=== PATIENT | female | born 1985 | race Caucasian/White ===

== ENCOUNTER 2016-07-09 08:06 | Day surgery (SDC) | payer BC ==
[2016-06-18 12:24] LABS: BASO % 0.6 %; BASO ABS # 0.03 K/uL (0-0.2); COMPLETE YES; EOS % 1.4 %; HEMATOCRIT 36.1 % (37-47); IG% 0.2 %; LYMPH % 34.4 %; LYMPH ABS # 1.72 K/uL (1.2-3.4); MEAN CELL VOLUME 86.2 fL (80-100); MEAN CORPUSCULAR HEMOGLOBIN 28.9 pg (25-34); MEAN CORPUSCULAR HGB CONC 33.5 g/dl (32-36); MEAN PLATELET VOLUME 12.2 fL (7.4-10.4); MONO % 6.2 %; NEUT % 57.2 %; PLATELET COUNT 191 K/uL (130-400); RED BLOOD COUNT 4.19 M/uL (4.2-5.4)
[2016-06-18 14:37] LABS: BLOOD UREA NITROGEN 16 mg/dl (7-18); BUN/CREATININE RATIO 21.6 (10-20); CALCIUM 9.4 mg/dl (8.5-10.1); CARBON DIOXIDE 26 mmol/L (21-32); CHLORIDE 110 mmol/L (98-107); CREATININE 0.76 mg/dl (0.60-1.20); GLUCOSE 81 mg/dl (70-99); SODIUM 144 mmol/L (136-145)
[2016-07-05 09:50] VITALS: BMI 21.0
[~2016-07-09] VITALS: Ht 157.5 cm; Wt 53.2 kg
[~2016-07-09 08:06] MED LIST: LACTATED RINGER'S 1000ML 1,000 ML IV SCH
[2016-07-09] MEDS ORDERED: LIDOCAINE HCL 2% 2 ML VIAL (20MG/ML) ONE (08:26)
[2016-07-09] MEDS ORDERED: PROPOFOL IV EMULSION 10 MG/ML 20 ML VIAL IV ONE (08:26)
[2016-07-09] MEDS ORDERED: FENTANYL CITRATE INJ 50 MCG/1 ML 2 ML VIAL ONE ×2 (08:26→13:31)
[2016-07-09] MEDS ORDERED: ONDANSETRON INJ 2 MG/ML 2 ML VIAL ONE ×3 (08:26→13:30)
[2016-07-09] MEDS ORDERED: MIDAZOLAM HCL 1 MG/ML 2ML VIAL ONE (08:26)
[2016-07-09] MEDS ORDERED: ROCURONIUM BROMIDE 10 MG/ML 5 ML VIAL ONE (08:26)
[2016-07-09] MEDS ORDERED: DEXAMETHASONE SOD INJ 4 MG/ML VIAL ONE (08:26)
[2016-07-09 08:29] VITALS: BP 100/62; PULSE 93; TEMP 36.9; O2SAT 97; Ht 157.5 cm; Wt 53.2 kg
--- NOTE | 2016-07-09 11:27 | History & Physical Bridge Note ---
H&P Re-Evaluation Bridge Note: I have examined the patient, reviewed the History & Physical and in the interval since the performance of the History & Physical I have noted the following changes of clinical significance: No changes noted
[2016-07-09] MEDS ORDERED: NEOSTIGMINE METHYLSULFATE 5 MG/5 ML SYR ONE (12:43)
[2016-07-09] MEDS ORDERED: GLYCOPYRROLATE INJ 0.2 MG/ML VIAL ONE (12:43)
[2016-07-09] MEDS ORDERED: EpHEDrine SULFATE 50MG/5ML SYR ONE (12:43)
[2016-07-09] MEDS ORDERED: BUPIVACAINE 0.5 % 5 MG/1 ML MPF 30ML VIAL INJ ONE (13:08)
[2016-07-09] MEDS ORDERED: METHYLENE BLUE 1% 10 ML VIAL TOP ONE (13:08)
[2016-07-09] MEDS ORDERED: SODIUM CHLORIDE 0.9% 1000ML 1,000 ML IV SCH (13:16)
--- NOTE | 2016-07-09 13:18 | [facility] Post Operative Brief Note ---
Immediate Operative Summary Operative Date Jul 09, 2016. Pre-Operative Diagnosis Endometriosis and pelvic pain Post-Operative Diagnosis Same as pre-operative Procedure(s) Performed Robotic assisted diagnostic laparoscopy with resection of endometriosis and chromotubation Surgeon Dr. Tami Mathew Chlorination Operator Surgeon(s) Dr. Ashwini Givens Estimated Blood Loss 10ml Findings Endometriosis. Specimens A. Pelvic peritonium biopsy Drains None Anesthesia General Complication(s) None Disposition Recovery Room / PACU
[2016-07-09] MEDS ORDERED: OXYC-57 PO (13:19)
--- NOTE | 2016-07-09 13:20 | Discharge Instructions ---
Discharge Instructions Admission Reason for Admission: Endometriosis Discharge Discharge Diagnosis / Problem: endometriosis Discharge Goals Goal(s): Routine recovery after surgery Activity Recommendations Activity Limitations: per Instructions/Follow-up section ACTIVITY RECOMMENDATIONS: * Rest the first 2-3 days. You should be back to your normal activity levels by day 3. * No heavy lifting for 2 weeks. * No intercourse, tampons or douching for 1-2 weeks. * You may shower the next day. * Do not drive anytime that you are taking narcotic pain medicines. RETURN TO SCHOOL/WORK: * May return to school or work after 2-3 days. DIET: Nausea may occur in the immediate post-operative period. If so, take clear liquids such as tea, bouillon, apple juice until all nausea has subsided, then resume usual diet. MEDICATIONS: Resume previous medications unless instructed otherwise by your surgeon. Ibuprofen 200mg 2-3 tablets every 4-6 hours as needed -- OR -- Aleve 2 tablets every 8-12 hours as needed for post-operative discomfort Medications are over the counter. Tylenol may be used if above medications are contraindicated or not preferred. Medication should be taken with food or milk. Do not take on an empty stomach. SPECIAL CARE INSTRUCTIONS: * Check temperature twice daily for one week. report any elevation over 101 degrees. * You may experience some vagina spotting and/or bleeding. This is normal for 1 -2 weeks and should not be heavier than a normal period. If it is unusual in amount, call your physician. * Post-operative discomfort may consist of a sore throat, a "bloated" feeling and pain in the shoulders. these are normal symptoms, which usually only last for 2-3 days. * Remove band-aids tomorrow and shower. There is no need to replace band-aids unless there is drainage or discomfort. FOLLOW UP VISIT: Call your doctor's office for a post-operative 2 week visit if not already scheduled. . Instructions / Follow-Up Instructions / Follow-Up ACTIVITY RECOMMENDATIONS: * Rest the first 2-3 days. You should be back to your normal activity levels by day 3. * No heavy lifting for 2 weeks. * No intercourse, tampons or douching for 1-2 weeks. * You may shower the next day. * Do not drive anytime that you are taking narcotic pain medicines. RETURN TO SCHOOL/WORK: * May return to school or work after 2-3 days. DIET: Nausea may occur in the immediate post-operative period. If so, take clear liquids such as tea, bouillon, apple juice until all nausea has subsided, then resume usual diet. MEDICATIONS: Resume previous medications unless instructed otherwise by your surgeon. Ibuprofen 200mg 2-3 tablets every 4-6 hours as needed -- OR -- Aleve 2 tablets every 8-12 hours as needed for post-operative discomfort Medications are over the counter. Tylenol may be used if above medications are contraindicated or not preferred. Medication should be taken with food or milk. Do not take on an empty stomach. SPECIAL CARE INSTRUCTIONS: * Check temperature twice daily for one week. report any elevation over 101 degrees. * You may experience some vagina spotting and/or bleeding. This is normal for 1 -2 weeks and should not be heavier than a normal period. If it is unusual in amount, call your physician. * Post-operative discomfort may consist of a sore throat, a "bloated" feeling and pain in the shoulders. these are normal symptoms, which usually only last for 2-3 days. * Remove band-aids tomorrow and shower. There is no need to replace band-aids unless there is drainage or discomfort. FOLLOW UP VISIT: Call your doctor's office for a post-operative 2 week visit if not already scheduled. Current Hospital Diet Patient's current hospital diet: Discharge Diet Recommended Diet: Regular Diet Procedures Procedures Performed: Robotic assisted diagnostic laparoscopy with resection of endometriosis and chromotubation Pending Studies Studies pending at discharge: no Medical Emergencies . Who to Call and When: Medical Emergencies: If at any time you feel your situation is an emergency, please call 911 immediately. . Non-Emergent Contact Non-Emergency issues call your: Primary Care Provider . . "Provider Documentation" section prepared by Angel Mathew. VTE Core Measure Inpt VTE Proph given/why not?: Malu Wooten, SCD's
[2016-07-09] MEDS ORDERED: KETOROLAC TROMETHAMINE 30 MG/ML VIAL ONE (13:21)
[2016-07-09] MEDS ORDERED: KETOROLAC TROMETHAMINE 30 MG/ML VIAL IV. PRN ×2 (13:30)
[2016-07-09] MEDS ORDERED: FENTANYL CITRATE INJ 50 MCG/1 ML 2 ML VIAL IV PRN (13:30)
[2016-07-09] MEDS ORDERED: ONDANSETRON INJ 2 MG/ML 2 ML VIAL IV PRN ×2 (13:30)
[2016-07-09] MEDS ORDERED: IBUPROFEN 600 MG TAB PO PRN (13:30)
[2016-07-09] MEDS ORDERED: ATROPINE SULFATE 0.1 MG/ML 5ML SYR IV PRN (13:30)
[2016-07-09] MEDS ORDERED: HYDROCODONE/ACETAMOPHEN 5/325MG TAB PO PRN ×2 (13:30)
[2016-07-09] MEDS ORDERED: PROMETHAZINE HCL INJ 25 MG in SODIUM CHLORIDE 0.9% 50ML 50 ML IV PRN (13:30)
[2016-07-09] MEDS ORDERED: OXYCODONE/ACETAMINOPHEN 5-325 TAB PO PRN ×2 (13:30)
[2016-07-09 14:15] VITALS: BP 90/57; PULSE 73; TEMP 36.6; O2SAT 99
[2016-07-09 14:45] VITALS: BP 98/58; PULSE 67; TEMP 36.4; O2SAT 99
--- NOTE | 2016-07-09 15:05 | Anesthesiology Progress Note ---
Anesthesia Post Op Note Date & Time Jul 09, 2016 at 15:04 Vital Signs Pain Intensity: 3 Vital Signs Past 12 Hours Date Time Temp Pulse Resp B/P Pulse Ox O2 Delivery O2 Flow Rate FiO2 07/09/16 14:45 36.4 67 18 98/58 99 Room Air 07/09/16 14:15 36.6 73 18 90/57 99 Room Air 07/09/16 14:05 36.3 78 18 97/58 99 Room Air 07/09/16 13:55 53 12 103/61 98 Room Air 07/09/16 13:45 60 14 102/62 100 Nasal Cannula 2 07/09/16 13:35 73 17 109/67 100 Nasal Cannula 2 07/09/16 13:29 36.2 102 20 110/75 99 Nasal Cannula 2 07/09/16 08:29 36.9 93 18 100/62 97 Room Air Notes Mental Status: alert / awake / arousable, participated in evaluation Pt Amnestic to Procedure: Yes Nausea / Vomiting: adequately controlled Pain: adequately controlled Airway Patency, RR, SpO2: stable & adequate BP & HR: stable & adequate Hydration State: stable & adequate Anesthetic Complications: no major complications apparent
[2016-07-09 15:15] VITALS: BP 108/61; PULSE 88; TEMP 36.7; O2SAT 100
--- NOTE | 2016-07-09 16:25 | OPERATIVE REPORT ---
DATE OF OPERATION: 07/09/2016 PREOPERATIVE DIAGNOSIS: Pelvic pain, suspected endometriosis. POSTOPERATIVE DIAGNOSIS: Pelvic pain, endometriosis. PROCEDURE: Robotically assisted laparoscopic resection of endometriosis and chromotubation. SURGEON: Dr. Mathew. ASSEMBLER DC FIELD RING: Dr. Givens. ESTIMATED BLOOD LOSS: 10 mL. FINDINGS: Endometriosis. SPECIMENS: Pelvic peritoneum biopsy x3. DRAINS: None. ANESTHETIC: General. COMPLICATIONS: None. DISPOSITION: Recovery room. DESCRIPTION OF PROCEDURE: Mercedes was given a general anesthetic, prepped and draped in dorsal lithotomy position in [facility]. Cook catheter placed in her bladder and a cervical acorn device attached to her cervix, attached to an Allis. Gloves changed. Subumbilical incision was made with scalpel. We did not incorporate the full incision from before as it was rather large but using open Anthony technique, we cut down through subcutaneous fascia, splitting the rectus muscles and then entering the peritoneal cavity without difficulty. Blunt-tipped Anthony trocar then placed. Balloon inflated. CO2 gas to insufflate the abdomen. FINDINGS: Using a 10 mm laparoscope, upper abdomen was normal, no sign of visceral organ injury. Deep Trendelenburg position obtained. There were areas of endometriosis which were mild in the cul-de-sac, the left pelvic sidewall and possibly in the bladder flap region. Two ports, one in the left, one in the right made; 8 mm size robotic ports then placed under direct visualization. Robot docked. Arm #1 was monopolar yumiko. Arm #2 was bipolar [place]. Robotically, I was able to visualize endo lesions in te cul- de-sac and in the left pelvic sidewall, there were hemosiderin laden lesions. These were small but certainly consistent with endometriosis. We resected these using minimal energy. The amount of energy applied to the cul-de-sac lesion may have distorted the lesion itself but we removed this out without difficulty. Same process on the left side except minimal energy used and the bladder flap as well lesion resected. All 3 lesions had been placed on the anterior part of the uterus for storage. At this stage, hemostasis was excellent. We were nowhere near the ureter on the left side at all, as this was seen peristalsing well lateral of the resection. Using the bipolar Maryland, we grasped the lesions and then removed the Maryland through the port. The lesions were then sent off to pathology. At this stage, the instruments removed, robot undocked, ports removed, and gas allowed to escape. Incisions were injected with 0.5% Marcaine. Fascia carefully closed with 0 Vicryl, subcuticular 4-0 Monocryl on incisions and Dermabond. Cook catheter removed and instruments removed from the cervix and vagina. Sponge and instrument counts correct. I attest to the content of the Intraoperative Record and any orders documented therein. Any exceptions are noted below. LB
== END 2016-07-09 15:30 | disposition home or self-care (01) ==
LOC: C.ACU 08:06
PROVIDERS: ATTEND Obstetrics & Gynecology
DX: N80.9 Endometriosis, unspecified (principal); Z82.49 Family history of ischemic heart disease and other diseases of the circulatory system; Z83.3 Family history of diabetes mellitus; Z98.890 Other specified postprocedural states
CPT/HCPCS: 58662; S2900

== ENCOUNTER → 2016-12-11 | Outpatient (CLI) | payer BC ==
[~2016-12-11] MED LIST changes: -LACTATED RINGER'S 1000ML 1,000 ML IV SCH; +OXYC-57 PO
== END | disposition home or self-care (01) ==
LOC: C.LAB1850 09:03
PROVIDERS: ATTEND Obstetrics & Gynecology
DX: Z32.00 Encounter for pregnancy test, result unknown (principal)

== ENCOUNTER → 2016-12-13 | Outpatient (CLI) | payer BC | END | disposition home or self-care (01) | LOC: C.LAB1850 09:31 | PROVIDERS: ATTEND Obstetrics & Gynecology | DX: O09.00 Supervision of pregnancy with history of infertility, unspecified trimester (principal); Z3A.00 Weeks of gestation of pregnancy not specified ==

== ENCOUNTER → 2016-12-28 | Outpatient (CLI) | payer BC ==
[2016-12-28 14:35] LABS: URINE APPEARANCE CLEAR (CLEAR); URINE BILIRUBIN NEG (NEG); URINE COLOR YELLOW; URINE NITRITE NEG (NEG); UROBILINOGEN NEG (NEG)
[2016-12-28 14:47] LABS: MANUAL MICROSCOPIC REQUIRED? NO; REVIEW REQ? NO
== END | disposition home or self-care (01) ==
LOC: C.LABSPEC 13:55
PROVIDERS: ATTEND Obstetrics & Gynecology
DX: O09.00 Supervision of pregnancy with history of infertility, unspecified trimester (principal); Z3A.00 Weeks of gestation of pregnancy not specified

== ENCOUNTER → 2017-01-01 | Outpatient (CLI) | payer BC | END | disposition home or self-care (01) | LOC: C.PAPS 18:00 | PROVIDERS: ATTEND Obstetrics & Gynecology | DX: Z01.419 Encounter for gynecological examination (general) (routine) without abnormal findings (principal); Z11.51 Encounter for screening for human papillomavirus (HPV) ==

== ENCOUNTER → 2017-01-01 | Outpatient (CLI) | payer BC ==
[2017-01-01 16:41] LABS: BASO % 0.4 %; BASO ABS # 0.03 K/uL (0-0.2); COMPLETE YES; EOS % 0.6 %; HEMATOCRIT 35.7 % (37-47); IG% 0.1 %; LYMPH % 25.1 %; LYMPH ABS # 2.09 K/uL (1.2-3.4); MEAN CELL VOLUME 83.6 fL (80-100); MEAN CORPUSCULAR HGB CONC 34.7 g/dl (32-36); MONO % 6.8 %; PLATELET COUNT 197 K/uL (130-400); RED BLOOD COUNT 4.27 M/uL (4.2-5.4); WHITE BLOOD COUNT 8.34 K/uL (4.8-10.8)
== END | disposition home or self-care (01) ==
LOC: C.LAB1850 15:58
PROVIDERS: ATTEND Obstetrics & Gynecology
DX: O09.299 Supervision of pregnancy with other poor reproductive or obstetric history, unspecified trimester (principal); Z01.419 Encounter for gynecological examination (general) (routine) without abnormal findings; Z11.51 Encounter for screening for human papillomavirus (HPV)

== ENCOUNTER → 2017-01-01 | Outpatient (CLI) | payer BC ==
[2017-01-04 02:02] LABS: CHLAMYDIA TRACH RNA*** NOT DETECTED (NOT DETECTED); GC (NEIS GONORRHOEAE)RNA** NOT DETECTED (NOT DETECTED)
== END | disposition home or self-care (01) ==
LOC: C.LABSPEC 17:24
PROVIDERS: ATTEND Obstetrics & Gynecology
DX: O09.299 Supervision of pregnancy with other poor reproductive or obstetric history, unspecified trimester (principal)

== ENCOUNTER → 2017-03-07 | Outpatient (CLI) | payer BC ==
[2017-03-07 12:53] LABS: GTGD 50 Grams
== END | disposition home or self-care (01) ==
LOC: C.LAB1850 10:07
PROVIDERS: ATTEND Obstetrics & Gynecology
DX: O09.299 Supervision of pregnancy with other poor reproductive or obstetric history, unspecified trimester (principal)

== ENCOUNTER → 2017-05-29 | Outpatient (CLI) | payer BC ==
[2017-05-29 12:46] LABS: HEMATOCRIT 30.6 % (37-47)
[2017-05-29 14:16] LABS: GTGD 50 Grams
[2017-05-29 15:15] LABS: URINE APPEARANCE CLEAR (CLEAR); URINE BILIRUBIN NEG (NEG); URINE COLOR YELLOW; URINE EPITHELIAL CELL AUTO 20-30 /lpf (0-5); URINE NITRITE NEG (NEG); URINE PH 7.5 (4.5-7.5); URINE SPECIFIC GRAVITY 1.008 (1.000-1.030); UROBILINOGEN NEG (NEG)
[2017-05-29 15:20] LABS: MANUAL MICROSCOPIC REQUIRED? NO; REVIEW REQ? NO
== END | disposition home or self-care (01) ==
LOC: C.LAB1850 11:19
PROVIDERS: ATTEND Obstetrics & Gynecology
DX: Z34.83 Encounter for supervision of other normal pregnancy, third trimester (principal)

== ENCOUNTER → 2017-07-22 | Outpatient (CLI) | payer BC | END | disposition home or self-care (01) | LOC: C.LABSPEC 13:37 | PROVIDERS: ATTEND Obstetrics & Gynecology | DX: Z34.83 Encounter for supervision of other normal pregnancy, third trimester (principal); Z3A.00 Weeks of gestation of pregnancy not specified ==

== ENCOUNTER 2017-08-18 18:05 | Outpatient (CLI) | payer BC ==
[2017-08-19] MEDS ORDERED: FERR50TA3 (09:46)
[2017-08-19] MEDS ORDERED: PRENTAB26 PO (09:46)
--- NOTE | 2017-08-22 09:17 | EDITING REQUIRED CODING QUERY ---
CERVICAL DILATOR Cervical dilator insertion is documented in the orders and by nursing in EMR on 08/18/17. Please provide clarification below: ( x ) Cervical dilator was inserted ( ) Cervical dilator was not inserted ( ) Other, please clarify: Thank you for your assistance, Marlene Quintero - Clinical Reimbursement Specialist
== END 2017-08-18 19:22 | disposition home or self-care (01) ==
LOC: C.LD 18:05 → C.OPB 18:05
PROVIDERS: ATTEND Obstetrics & Gynecology
DX: O26.893 Other specified pregnancy related conditions, third trimester (principal); Z3A.00 Weeks of gestation of pregnancy not specified

== ENCOUNTER 2017-08-19 07:10 | Inpatient (IN) | payer BC ==
[~2017-08-19] VITALS: Ht 157.5 cm; Wt 68.5 kg
[2017-08-19] MEDS ORDERED: LACTATED RINGER'S 1000ML 1,000 ML IV SCH ×2 (08:29→08:41)
[2017-08-19] MEDS ORDERED: LACTATED RINGER'S 1000ML 1,000 ML IV PRN ×2 (08:29→08:41)
[2017-08-19] MEDS ORDERED: LACTATED RINGER'S 1000ML 500 ML IV PRN (08:41)
[2017-08-19] MEDS ORDERED: OXYTOCIN 30 UNITS/500ML NSS IV PRN ×2 (08:45→16:00)
[2017-08-19 09:20] LABS: HEMATOCRIT 32.1 % (37-47); HEMOGLOBIN 10.9 g/dL (12.0-16.0); MEAN CELL VOLUME 85.4 fL (80-100); RED CELL DISTRIBUTION WIDTH CV 15.8 % (11.5-14.5); RED CELL DISTRIBUTION WIDTH SD 48.8 fL (36.4-46.3); WHITE BLOOD COUNT 8.29 K/uL (4.8-10.8)
[2017-08-19 09:35] LABS: MEAN PLATELET VOLUME 12.1 fL (7.4-10.4); PLATELET COUNT 100 K/uL (130-400)
[2017-08-19] MEDS ORDERED: FERR50TA3 (09:46)
[2017-08-19] MEDS ORDERED: PRENTAB26 PO (09:46)
[2017-08-19] MEDS ORDERED: HYDROCORTISONE ACETATE 25 MG SUPP PR PRN (16:00)
[2017-08-19] MEDS ORDERED: ACETAMINOPHEN 325 MG TAB PO PRN (16:00)
[2017-08-19] MEDS ORDERED: DIPHTHERIA/TETANUS/PERTUSSIS 0.5 ML SYR/VIAL IM. ONE (16:00)
[2017-08-19] MEDS ORDERED: SUPERCREAM 0.870 % 15GM JAR EXT PRN (16:00)
[2017-08-19] MEDS ORDERED: ACETAMINOPHEN/CODEINE 300/30MG TAB PO PRN ×2 (16:00)
[2017-08-19] MEDS ORDERED: BENZOCAINE 20% AER SPR 82.5 GM CAN EXT PRN (16:00)
[2017-08-19] MEDS ORDERED: LANOLIN OINT EXT PRN (16:00)
--- NOTE | 2017-08-19 16:15 | DELIVERY SUMMARY ---
DATE OF OPERATION: 08/19/2017 PREDELIVERY DIAGNOSES: 1. A 31-year-old G5, P 3-0-1-3 at 40 weeks and 0 days. 2. Elective induction of labor. 3. History of anxiety. POSTDELIVERY DIAGNOSES: Same. PROCEDURE: Spontaneous vaginal delivery and repair of first degree perineal laceration. FINDINGS: Viable male . Apgars 8 and 9. Weight pending. Please see nursery records. ESTIMATED BLOOD LOSS: 300 mL. DESCRIPTION OF DELIVERY: The patient had presented last night for Cook balloon administration for induction of labor and then returned this morning and was 5 cm dilated upon arrival. She declined epidural. She received Pitocin and began to contract. She then progressed to complete with artificial rupture of membranes at 9 cm dilation when she was beginning to feel strong urge to push. She then pushed and spontaneously vaginally delivered a viable male in the cephalic presentation. The head delivered in the left occiput anterior position. The anterior shoulder delivered by the posterior shoulder followed by the body. No nuchal cord was noted. The baby was placed on mother's abdomen and delayed cord clamping was employed after 1 minute and sensation of pulsation was recorded. The cord was doubly clamped and cut. A cord segment was retained for cord gases. Cord blood was obtained. The placenta then delivered spontaneously intact with a 3-vessel cord. Pitocin was given. The uterus became firm. The uterus and vagina were swept of all clots and debris. The cervix, vagina and perineum were inspected and a first degree perineal laceration was noted and repaired in standard fashion with 3-0 Vicryl in a running stitch. Excellent hemostasis was observed. The patient and baby tolerated the delivery well and are recovering in the room in stable and good condition. I attest to the content of the Intraoperative Record and any orders documented therein. Any exception s are noted below.
[2017-08-19] MEDS: IBUPROFEN 600 MG TAB PO PRN ×2 (16:17→23:01)
[2017-08-19 19:19] VITALS: Ht 157.5 cm; Wt 68.5 kg
[2017-08-19 19:45] VITALS: BP 126/70; PULSE 72; TEMP 36.8; O2SAT 100
[2017-08-19] MEDS: DOCUSATE SODIUM 100 MG CAP PO SCH (20:00)
[2017-08-19 23:15] VITALS: BP 114/77; PULSE 70; TEMP 36.5; O2SAT 99
[2017-08-20] MEDS: IBUPROFEN 600 MG TAB PO PRN ×4 (03:16→15:30)
[2017-08-20 04:10] VITALS: BP 102/69; PULSE 80; TEMP 36.8; O2SAT 99
--- NOTE | 2017-08-20 06:27 | Progress Note ---
Subjective Aug 20, 2017. Subjective conversation w/ patient Ambulation: ambulating normally Voiding: no voiding problems Diet Tolerance: Regular Diet Lochia: Moderate Feeding Type: Breast Feeding Pain: 5/10 cramping pain improved by analgesia Review of Systems Constitutional: No fever, No chills Respiratory: No shortness of breath Cardiac: No chest pain Breast: No breast pain Abdomen: No nausea, No vomiting Female : No dysuria Objective Vital Signs Date Time Temp Pulse Resp B/P (MAP) Pulse Ox O2 Delivery O2 Flow Rate FiO2 08/20/17 04:10 36.8 80 18 102/69 (80) 99 Room Air 08/19/17 23:15 36.5 70 16 114/77 (89) 99 Room Air 08/19/17 23:15 99 08/19/17 19:45 36.8 72 16 126/70 (88) 100 Room Air Physical Exam General Appearance: WELL-APPEARING, WD/WN, NO APPARENT DISTRESS Respiratory/Chest: lungs clear, normal breath sounds Cardiovascular: regular rate, rhythm Abdomen: soft Fundus: Firm, Non-Tender, Relation to Umbilicus (at u) Extremities: no calf tenderness Laboratory Results Last 24 Hours Test 08/19/17 08:40 08/20/17 04:44 White Blood Count 8.29 K/uL Red Blood Count 3.76 M/uL Hemoglobin 10.9 g/dL Hematocrit 32.1 % Mean Corpuscular Volume 85.4 fL Mean Corpuscular Hemoglobin 29.0 pg Mean Corpuscular Hemoglobin Concent 34.0 g/dl RDW Standard Deviation 48.8 fL RDW Coefficient of Variation 15.8 % Platelet Count 100 K/uL Mean Platelet Volume 12.1 fL Platelet Estimate DECREASED Medications Current Inpatient Medications Medications (Trade) Dose Ordered Sig/Dayron Route Start Time Stop Time Status Last Admin Dose Admin Oxytocin (Pitocin IV) 30 units UD PRN IV 08/19/17 16:00 09/18/17 15:59 08/19/17 16:23 30 UNITS Benzocaine (Dermoplast Aero Spr) 1 appln PRN PRN EXT 08/19/17 16:00 09/18/17 15:59 Cocaine HCl (Supercream 0.870% Cr) BID PRN EXT 08/19/17 16:00 09/02/17 15:59 Hydrocortisone Acetate (Anusol Hc Supp) 25 mg BID PRN [place] 08/19/17 16:00 09/18/17 15:59 Lanolin (Lanolin Oint) PRN PRN EXT 08/19/17 16:00 09/18/17 15:59 Prenat Multivit/ [place]/Iron/Folic Ac ( Vitamin Tab) 1 tab DAILY PO 08/20/17 08:00 09/19/17 07:59 Ibuprofen (Motrin Tab) 600 mg Q4H PRN PO 08/19/17 16:00 09/18/17 15:59 08/20/17 03:16 600 MG Acetaminophen (Tylenol Tab) 650 mg Q6H PRN PO 08/19/17 16:00 09/18/17 15:59 Acetaminophen/ Codeine Phosphate (Tylenol w/ Codeine #3 Tab) 1 tab Q4H PRN PO 08/19/17 16:00 09/18/17 15:59 08/19/17 17:55 1 TAB Acetaminophen/ Codeine Phosphate (Tylenol w/ Codeine #3 Tab) 2 tab Q4H PRN PO 08/19/17 16:00 09/18/17 15:59 Bisacodyl (Dulcolax Tab) 5 mg 20 PO 08/20/17 20:00 08/20/17 20:01 Bisacodyl (Dulcolax Supp) 10 mg DAILY PRN [place] 08/21/17 07:00 09/18/17 06:59 Docusate Sodium (coLACE CAP) 100 mg BID PO 08/19/17 20:00 09/18/17 19:59 08/19/17 20:00 100 MG Ferrous Sulfate (Feosol Tab) 325 mg DAILY PO 08/20/17 08:00 09/19/17 07:59 Assessment and Plan Post- Day#: 1 Continue Routine Care: 31 year old s/p NVD w/induction day 1 - pt doing well clinically - O+, Rubella immune, GBS -ve - vitals reviewed and wnl - continue to encourage ambulation, and analgesia prn - pt ready for d/c later today so will review d/c instructions Resident Physician Supervision Note: I interviewed and examined the patient. Discussed with Dr. Brandt and agree with findings and plan as documented in the note. Any exceptions or clarifications are listed here: [None] Documented By: Angel Mathew Resident Tracking Resident Involvement: Resident Care Provided Care Provided: OB Delivery
--- NOTE | 2017-08-20 06:33 | Discharge Instructions ---
Discharge Instructions Date of Service Aug 20, 2017. Admission Reason for Admission: Induction Discharge Discharge Diagnosis / Problem: Vaginal Delivery Discharge Goals Goal(s): Routine recovery after delivery Medications Continue Dispensed Medications: supercream, dermaplast, tucks, lansinoh Activity Recommendations Activity Limitations: per Instructions/Follow-up section . Instructions / Follow-Up Instructions / Follow-Up ACTIVITY RECOMMENDATIONS: * Gradual return to full activity over the next 2-3 weeks. * No lifting - nothing heavier than baby over the next 2-3 weeks. * Do not engage in vigorous exercise, sexual activity or sports until cleared by your physician. * Do not drive or operate any motorized equipment until cleared by your physician. * You may shower/bathe daily. MEDICATIONS: For discomfort or pain, you may use Acetaminophen (Tylenol), Ibuprofen (Advil), or Naproxen (Aleve) following the package directions. For constipation you may use Colace following the package directions. BREAST CARE: If you are not breast feeding: * Wear a supportive bra 24 hours a day for one to two weeks. * Avoid stimulating your breasts and nipples as much as possible during the first few weeks after delivery. * When taking a shower, have the warm water hit your back, not breasts. * When your breasts feel full, apply ice packs. Usually three to four times a day helps ease the discomfort. * Take a mild pain medication (Tylenol / Motrin) when you are uncomfortable. If breast feeding: * Use breast milk to lubricate nipples. Lansinoh cream may be used for sore nipples. You do not need to remove cream prior to breast feeding. If using a different brand of cream, check the label for directions regarding removal of cream prior to nursing. * Wear a supportive bra. * If having problems with breasts or breast feeding, call a vmware consultant or your health care provider. EPISIOTOMY CARE: After delivery, if you have an episiotomy (stitches), the following steps will ease discomfort and aid healing. * For the first 24 hours after delivery, place ice packs next to your episiotomy to help reduce swelling. * After the first 24 hour-period, sitz baths, either portable or in the tub, are suggested. A shower with a shower arm sprayed over the episiotomy may be comforting. * Franca care should be done after each voiding and bowel movement. Squirt warm water from a plastic bottle over the perineum (region of the body between the anus and urinary opening) and pat dry. * Use Dermoplast to ease discomfort. Shake container. Warren directly over the episiotomy. Place a Tucks on a clean sanitary pad next to your episiotomy. SPECIAL CARE INSTRUCTIONS: When you are discharged from the hospital, it is important for you to follow the instructions listed below: * During the first week at home, you should be able to care for yourself and your baby. In addition, the usual light household activities are encouraged. * Limit your activities to the way you feel. Do not try to clean the house or move furniture. Be sensible. * If you actively engage in sports and have done so up until the time of your delivery, you may resume these activities as soon as you feel able. This may take up to one month or even longer. Use good judgment. * Continue to take your vitamins for at least six weeks after the of your baby. * Your diet need not be limited unless you were on a special diet before your delivery. Breast-feeding mothers need around 2500 calories per day and at least 64-80 ounces of fluid per day (8 to 10 glasses). * You should eat foods from the four major food groups. Crash diets or fad diets are to be avoided. Eating lean meats, fresh fruits and vegetables, low-fat dairy products, high fiber foods and a regular exercise program, will help you get back to your pre- weight without putting your health at risk. * Constipation is sometimes a problem after delivery. Take a mild laxative as needed. If breast feeding, Milk of Magnesia is acceptable to use. You may use a suppository or Fleets enema if no episiotomy. * A daily shower or tub bath is suggested. Be sure to thoroughly and gently dry the perineum. * A bloody vaginal discharge will usually continue until around four weeks post . A small amount of bleeding may continue for as long as six weeks. Vaginal discharge changes from the bright red bleeding after delivery to pink then brownish and finally yellowish-pink before becoming white and disappearing. * Bleeding may increase with activity. Your first period may come in 4-8 weeks. If you are breast feeding, your period may be delayed even longer. * [place] (sex) can begin whenever both you and your partner feel comfortable and do not have any form of genital infection. It is recommended that you wait at least six weeks for internal and external healing to occur. If you have questions, please talk to your health care practitioner. A condom should be used to prevent infection and . * Foreplay, gentle intercourse and lubrication is very important the first several times to prevent pain. A water-based lubricant such as K-Y jelly or Astroglide may be used. * If you have RH negative blood and your baby is RH positive, you will receive RHOGAM by injection prior to discharge. The nurse will give you a card to keep with you that has the date and place that you received RHOGAM after delivery. * During your care, you had a Rubella screen done to check for the presence of rubella antibodies in your blood. If your test was negative, you will receive a Rubella vaccine prior to discharge. This vaccine may cause a fever, soreness at the injection site and flu-like symptoms. If these symptoms persist, notify your health care practitioner. is not advised for one month after a Rubella vaccine. * Verbalizes understanding of car seat law as reviewed with patient nursing. * Car Seat hand-out given and reviewed with patient by nursing. * Shaken baby information reviewed with patient by nursing. Call you doctor if: * Heavy bleeding (saturating several pads an hour) or passing clots the size of your fist. * A fever >101 degrees F (38.3 degrees C) on two occasions four hours apart and /or chills. * Unusual pain in the pelvic or vaginal areas. * "Baby Blues" lasting longer than two weeks. If you have any questions or concerns, call your health care practitioner at . FOLLOW UP VISIT: * Please call the office at to schedule a 6 week examination. It is important you keep this appointment. It is important for you to make arrangements for either yearly or twice yearly check-ups thereafter. Current Hospital Diet Patient's current hospital diet: Regular OB Diet Discharge Diet Recommended Diet: Regular Diet Pending Studies Studies pending at discharge: no Medical Emergencies . Who to Call and When: Medical Emergencies: If at any time you feel your situation is an emergency, please call 911 immediately. . Non-Emergent Contact Non-Emergency issues call your: Primary Care Provider . . "Provider Documentation" section prepared by Rikki Cross. . VTE Core Measure Inpt VTE Proph given/why not?: Treatment not indicated
[2017-08-20 07:20] LABS: HEMATOCRIT 27.4 % (37-47); HEMOGLOBIN 9.3 g/dL (12.0-16.0)
[2017-08-20 07:27] VITALS: BP 122/81; PULSE 76; TEMP 36.8; O2SAT 100
[2017-08-20] MEDS: DOCUSATE SODIUM 100 MG CAP PO SCH (07:41)
[2017-08-20] MEDS ORDERED: FERROUS SULFATE 325 MG TAB PO SCH (08:00)
[2017-08-20] MEDS ORDERED: PRENATAL VITAMIN TAB PO SCH ×2 (08:00)
[2017-08-20 11:30] VITALS: BP 111/74; PULSE 78; TEMP 36.9; O2SAT 100
[2017-08-20 15:30] VITALS: BP 95/66; PULSE 86; TEMP 36.7
[2017-08-20 17:00] VITALS: BP_DIAS 66; PULSE 86; TEMP 36.7
[2017-08-20] MEDS ORDERED: BISACODYL 5 MG TABEC PO SCH (20:00)
[2017-08-21] MEDS ORDERED: BISACODYL 10 MG SUPP PR PRN (07:00)
== END 2017-08-20 17:20 | disposition home or self-care (01) | DRG 775 ==
LOC: C.LD 07:39 → C.OBG 18:42
PROVIDERS: ADMIT Obstetrics & Gynecology; ATTEND Obstetrics & Gynecology
PROC: 0HQ9XZZ Repair Perineum Skin, External Approach (ICD-10-PCS; principal; 2017-08-19)
PROC: 10E0XZZ Delivery of Products of Conception, External Approach (ICD-10-PCS; principal; 2017-08-19)
PROC: 3E0P7GC Introduction of Other Therapeutic Substance into Female Reproductive, Via Natural or Artificial Opening (ICD-10-PCS; 2017-08-19)
DX: O62.3 Precipitate labor (principal); O70.0 First degree perineal laceration during delivery; Z37.0 Single live birth; Z3A.40 40 weeks gestation of pregnancy

== ENCOUNTER 2020-10-09 19:04 | Inpatient (IN) ==
[2020-10-09] MEDS ORDERED: LACTATED RINGER'S 1,000 ML IV PRN (20:41)
[2020-10-09] MEDS ORDERED: OXYTOCIN 30 UNITS/500 ML BAG IV PRN ×2 (20:41)
--- NOTE | 2020-10-09 20:43 | History & Physical Report ---
Date of Service October 09, 2020 Assessment & Plan (1) Supervision of normal intrauterine in multigravida in third tr imester: Patient presented for marcos insertion, she was counseled on RBA prior to procedure, including risk of labor induction with marcos bulb alone, ROM, vaginal bleeding. I performed insertion of marcos balloon into cervix, this caused rupture of membranes for clear fluid. I discussed with patient that this will now change plans, as I would recommend admission for induction of labor, since she now has ruptured membranes. She is agreeable. We discussed options - can start induction now with pitocin, or could allow ambulation for up to 6h to see if labor sets in naturally upon AROM. She and spouse would like to think about this, we discussed pros/cons of each. Will place orders for admission - labs, EFM/toco, IV access at this time. COVID test per unit policy. History of Present Illness Chief Complaint: IOL Primary Care Provider: Karina Sauer PA-C 35yo @ 39 09/11, presented tonight for marcos bulb insertion in advance of tomorrow's IOL. +FM, no vaginal bleeding. No leaking of fluid on arrival. No reg ctx. Allergies Allergy/AdvReac Type Severity Reaction Status Date / Time No Known Drug Allergies Allergy Verified 10/03/20 08:23 Home Medications Medication Instructions Recorded Confirmed Type albuterol sulfate 90 mcg/actuation 1 puffs INH QID PRN #8 gm 01/25/20 10/03/20 Rx aerosol inhaler prenat.vits,montana,[id number] PO 04/27/20 10/03/20 History Patient History Medical History 40 weeks gestation of Abnormal menstrual cycle Asthma Choroid plexus cyst Dysfunctional uterine bleeding Dyspareunia H/O rapid labor History of chicken pox Oligomenorrhea Ovarian cyst Ovulatory pain PCOS (polycystic ovarian syndrome) Supervision of normal intrauterine in multigravida in third trimester Term Surgical History H/O oral surgery History of dilation and curettage S/P ear surgery bilateral stapedectomy S/P laparoscopy fulguration endometriotic tissue round ligaments S/P laparoscopy excision endometriotic tissue cul-de-sac Family History Grandmother (Maternal) Diabetes Grandmother (Paternal) Diabetes Father Diabetes Hypertension Mother Hypertension Family/Other Poikilocytosis Other Hyperlipidemia Denies family history of Ovarian cancer Breast cancer Colorectal cancer Social History (Updated 02/26/20 @ 10:03 by Judy Rodriguez) Smoking Status: Never smoker Hx Alcohol Use: Yes Hx Substance Use: No marital status: marital status details: Jair Downs (34) [phone] Current Living Situation: Spouse and Family Current Living Situation Comment: lioves with spouse, 4 children, chickens, dog current occupational status: employed 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 No s/s chorio or abruption. Skin: no rashes, warm and dry Psychiatric: A+Ox3, euthymic affect Results & Data ([facility]) Vital Signs (Past 12 Hours) Vital Signs Temp Pulse Resp BP 10/09/20 19:18 36.7 C 88 16 118/72 10/09/20 19:13 36.7 C 88 16 118/72 Monitoring External Monitor Cat [address] Trail none Coding Level of Care Code None Diagnoses Supervision of normal intrauterine in multigravida in third trimester Z34.83
[2020-10-09 21:05] LABS: Hematocrit (blood only) 31.9 % (37-47); Hemoglobin 10.5 g/dL (12.0-16.0); Mean Corpuscular Hgb Conc 32.9 g/dL (32-36); Mean Platelet Volume 12.3 fL (7.4-10.4); Platelet Count 156 K/uL (130-400); RDW Coefficient of Variation 13.4 % (11.5-14.5); RDW Standard Deviation 40.3 fL (36.4-46.3); Red Blood Count 3.89 M/uL (4.2-5.4); White Blood Count 8.77 K/uL (4.8-10.8)
[2020-10-10] MEDS ORDERED: SODIUM CHLORIDE 0.9% INJ 10 ML VIAL ONE (01:13)
[2020-10-10] MEDS ORDERED: BUPIVACAINE 0.25% 30 ML VIAL ONE (01:13)
[2020-10-10] MEDS ORDERED: ePHEDrine sulfate 50 MG/ML AMP ONE (01:13)
[2020-10-10] MEDS ORDERED: fentaNYL 2MCG/ML ROPIVACAINE 1.25MG/ML 100 ML BAG EPI ONE (01:15)
[2020-10-10] MEDS ORDERED: fentaNYL citrate 100 MCG/2 ML VIAL ONE (01:15)
[2020-10-10] MEDS ORDERED: fentaNYL 2MCG/ML ROPIVACAINE 1.25MG/ML 100 ML BAG EPI PRN (01:17)
[2020-10-10] MEDS ORDERED: ePHEDrine sulfate 50 MG/ML AMP IV PRN (01:17)
[2020-10-10] MEDS ORDERED: diphenhydrAMINE 50 MG/ML VIAL IV PRN (01:17)
[2020-10-10] MEDS ORDERED: NALOXONE HCL 0.4 MG/1 ML VIAL/CARP IV PRN (01:17)
[2020-10-10] MEDS ORDERED: NALOXONE HCL 1 MG in SODIUM CHLORIDE 0.9% 1000ML 1,000 ML IV PRN (01:17)
[2020-10-10] MEDS ORDERED: ONDANSETRON INJ 2 MG/ML 2 ML VIAL IV PRN (01:17)
--- NOTE | 2020-10-10 01:19 | Anesthesiology Consultation ---
Date of Service October 10, 2020 Assessment & Plan (1) Encounter for pre-operative examination: Chart Review Chart Review: Patient NOT seen in Pre Admission Testing and Acceptable Risk for Labor Epidural Consults Requested none History Height/Weight Height: 5 ft 2 in Weight: 72.575 kg Allergies Allergy/AdvReac Type Severity Reaction Status Date / Time No Known Drug Allergies Allergy Verified 10/03/20 08:23 Medications Home Medications Medication Instructions Recorded Confirmed Last Taken albuterol sulfate 90 mcg/actuation 1 puffs INH QID PRN #8 gm 01/25/20 10/03/20 10/09/20 aerosol inhaler prenat.vits,montana,[id number] PO 04/27/20 10/03/20 10/08/20 Active Medications Generic Name Dose Route Start Last Admin Trade Name Freq PRN Reason Stop Dose Admin Oxytocin 30 units in 500 mls @ 1 mls/hr 10/09/20 20:41 10/09/20 23:49 Pitocin IV 10/11/20 20:40 0.06 units/hr .Q24H PRN 1 mls/hr Labor Induction/Augmentation Administration Protocol 0.06 UNITS/HR Lactated Ringer's 1,000 mls @ 125 mls/hr 10/09/20 20:41 10/09/20 23:49 Lr IV 10/11/20 20:40 125 mls/hr .Q8H PRN Administration L&D Protocol Protocol Past Medical History Medical History 40 weeks gestation of Abnormal menstrual cycle Asthma Choroid plexus cyst Dysfunctional uterine bleeding Dyspareunia H/O rapid labor History of chicken pox Oligomenorrhea Ovarian cyst Ovulatory pain PCOS (polycystic ovarian syndrome) Supervision of normal intrauterine in multigravida in third trimester Term Exercise / Class Metabolic Activity II 4-5 Yardwork/Stairs/Walk up hill Past Family History Family History Grandmother (Maternal) Diabetes Grandmother (Paternal) Diabetes Father Diabetes Hypertension Mother Hypertension Family/Other Poikilocytosis Other Hyperlipidemia Denies family history of Ovarian cancer Breast cancer Colorectal cancer Past Surgical History Surgical History H/O oral surgery History of dilation and curettage S/P ear surgery bilateral stapedectomy S/P laparoscopy fulguration endometriotic tissue round ligaments S/P laparoscopy excision endometriotic tissue cul-de-sac Past Anesthesia History No Hx of Anesthesia Complications and No Family Hx of Anesthesia Complications History of PONV No Hx of PONV and No Hx of Motion Sickness Social History Smoking Status: Former smoker Do You Dip or Chew Tobacco: No Hx Alcohol Use: Yes Hx Substance Use: No Physical Exam Vital Signs Last Vital Signs Temp 36.6 C 10/09/20 23:51 Pulse 93 H 10/10/20 01:09 Resp 16 10/09/20 23:51 BP 134/79 10/10/20 01:09 Testing Laboratory Results 10/09/20 20:52
--- NOTE | 2020-10-10 03:26 | Delivery Summary ---
Vaginal Delivery Summary Date of Service October 10, 2020 Vaginal Delivery Summary [facility] Vaginal Delivery Summary: Pre-delivery diagnoses: 35yo @ 39 4/7, AROM at time of IOL and then labor Post-delivery diagnoses: same Procedure: spontaneous vaginal delivery Surgeon: Ashwini Givens DO Complications: none Findings: Viable female . Apgars: 8/9. Weight pending, please see nursery records Estimated blood loss: 100ml Description of delivery: The patient progressed to complete with epidural anesthesia. She then began to push. She spontaneously vaginally delivered a viable from the cephalic presentation. The head delivered in LILLI position. Nuchal cord x 1, too tight to reduce, delivered through. The anterior shoulder delivered, followed by the posterior shoulder, followed by the body. The baby was placed on mother's abdomen and a spontaneous cry was heard. Delayed cord clamping was employed, and the cord was doubly clamped and cut after 1 minute. Cord blood was obtained. The placenta was delivered spontaneously intact with a 3-vessel cord. The uterus and vagina were swept of clots and debris. IV pitocin was given. The uterus became firm. The cervix, vagina, and perineum were inspected and no lacerations were noted. Excellent hemostasis was observed. The mother and baby are recovering in stable and good condition in the room. Sponge and instrument counts were correct x 2. Ashwini Givens DO [facility] Vaginal Delivery Charge Vaginal Delivery Codes: 77803 global code for the antepartum, delivery, and post- Delivery Type Details: [facility]
[2020-10-10] MEDS ORDERED: ERYTHROMYCIN OP OINT 1 GM PKT ONE (03:35)
[2020-10-10] MEDS ORDERED: IBUPROFEN 600 MG TAB PO ONE (04:55)
[2020-10-10] MEDS ORDERED: HYDROCORTISONE ACETATE 25 MG SUPP PR PRN (04:56)
[2020-10-10] MEDS ORDERED: OXYTOCIN 30 UNITS/500 ML BAG IV PRN (04:56)
[2020-10-10] MEDS ORDERED: bisacodyL 10 MG SUPP PR PRN (04:56)
[2020-10-10] MEDS ORDERED: BENZOCAINE 20% AER SPR 82.5 GM CAN EXT PRN (04:56)
[2020-10-10] MEDS ORDERED: oxyCODONE/ACETAMINOPHEN 5mg/325mg TAB PO PRN (04:56)
[2020-10-10] MEDS ORDERED: DIPHTHERIA/TETANUS/PERTUSSIS 0.5 ML SYR/VIAL IM ONE (04:56)
[2020-10-10] MEDS ORDERED: SUPERCREAM 0.870% 15 GM JAR EXT PRN (04:56)
[2020-10-10] MEDS ORDERED: ACETAMINOPHEN 325 MG TAB PO PRN (04:56)
--- NOTE | 2020-10-10 08:04 | Anesthesia Procedure Note ---
Date of Service October 10, 2020 Anesthesia Post Epidural Note Vital Signs Vital Signs: Temp Pulse Resp BP Pulse Ox 98.1 F 80 18 128/78 97 10/10/20 07:00 10/10/20 07:00 10/10/20 07:00 10/10/20 07:00 10/10/20 03:12 Pain Intensity Bilateral Abdomen: Pain Intensity: 0 Notes Mental Status: alert / awake / arousable and participated in evaluation Nausea / Vomiting: adequately controlled Pain: adequately controlled Airway Patency, RR, SpO2: stable & adequate BP & HR: stable & adequate Hydration State: stable & adequate Neuraxial Anesthesia: was administered and sensory block is resolving Anesthetic Complications: no major complications apparent and Pt Satisfied with anesthetic care Epidural: Removed without complications and With tip intact
[2020-10-10] MEDS: PRENATAL VITAMIN 1 TAB PO SCH (08:37)
[2020-10-10] MEDS: DOCUSATE SODIUM 100 MG CAP PO SCH ×2 (08:37→20:03)
[2020-10-10] MEDS: IBUPROFEN 600 MG TAB PO PRN ×3 (08:38→20:03)
[2020-10-11] MEDS: IBUPROFEN 600 MG TAB PO PRN ×2 (01:38→07:53)
--- NOTE | 2020-10-11 05:49 | Obstetrical Progress Note ---
Date of Service <Rod Cabral MD - Last Filed: 10/11/20 07:07> October 11, 2020 Assessment & Plan <Rod Cabral MD - Last Filed: 10/11/20 07:07> (1) (spontaneous vaginal delivery): Mercedes is a 35 y/o female who is technically PPD#1 (delivered early AM of 10/10) following at 39-4/7 weeks. - Feels well today. Eating well, voiding well, ambulating well. - Pain well controlled with ibuprofen 600mg Q4H PRN. - Routine PPD care -- encourage OOB, ambulation as tolerated - Anticipate d/c today pending peds - After discharge will have [address] Givens Subjective <Rod Cabral MD - Last Filed: 10/11/20 07:07> Mercedes is a 35 y/o female who is technically PPD#1 (delivered early AM of 10/10) following at 39-4/7 weeks. Reports feeling well overall this morning. Endorses mild abdominal cramping but well managed on analgesics. Voiding without difficulty. Tolerating meals well and able to ambulate some. Some persistent lochia with some improvement this morning. Breast feeding without difficulty. Would like to go home today. Review of Systems Denies fever, chills, sweats Denies shortness of breath, difficulty breathing, chest pain, palpitations, chest pressure. Denies breast pain. Denies dysuria. Denies headache or changes in vision. Physical Exam <Rod Cabral MD - Last Filed: 10/11/20 07:07> General: Alert, oriented. No acute distress. Cardiac: Regular rate and rhythm, no murmurs/rubs/gallops. Respiratory: Clear to auscultation bilaterally a/p, no wheezes/rales/rhonchi. No increased work of breathing. Symmetrical chest rise. No respiratory distress. Abdomen: Soft, nontender, nondistended. Bowel sounds present. Uterus: Uterine fundus firm, palpable 1 cm below umbilicus. Lower Extremities: No lower extremity edema or swelling. No deep calf pain. Navjot's negative bilaterally. Results & Data ([facility]) <Rod Cabral MD - Last Filed: 10/11/20 07:07> Vital Signs (Past 12 Hours) Vital Signs Temp Pulse Resp BP Pulse Ox 10/11/20 03:00 36.9 C 76 16 107/68 10/10/20 23:05 36.8 C 83 16 126/73 96 10/10/20 19:20 36.7 C 76 18 126/75 <Tami Mathew MD, FACOG - Last Filed: 10/11/20 08:10> Co-Signing Physician Notes Resident Physician Supervision Note: I was present with Dr. Velasco during the history and exam. I discussed the case with the resident and agree with the findings and plan as documented in the note. Any exceptions or clarifications are listed here: [None] Documented By: Tami Mathew MD, FACOG Resident Activity Tracking <Rod Cabral MD - Last Filed: 10/11/20 07:07> Resident Involvement: Resident Care Provided Care Provided: Adult Hospital Medicine and OB Delivery
[2020-10-11 06:03] LABS: Hematocrit (blood only) 27.6 % (37-47); Hemoglobin 9.1 g/dL (12.0-16.0)
[2020-10-11] MEDS: PRENATAL VITAMIN 1 TAB PO SCH (07:53)
[2020-10-11] MEDS: DOCUSATE SODIUM 100 MG CAP PO SCH (07:53)
[2020-10-11] MEDS ORDERED: bisacodyL 5 MG TABEC PO SCH (20:00)
== END 2020-10-11 10:20 | disposition home or self-care (01) | DRG 807 ==
LOC: OPB 19:04 → 4S1 19:07 → 4S2 10-10 06:10